=== PATIENT | male | born 2000 | race Hispanic/Latino ===

== ENCOUNTER 2020-08-19 01:21 | Emergency (ER) | payer OTHER | END 2020-08-19 03:15 | disposition home or self-care (01) | LOC: ERS 01:21 | DX: R44.3 Hallucinations, unspecified (principal) | CPT/HCPCS: 99281 ==

== ENCOUNTER 2023-10-29 09:22 | Outpatient (CLI) | payer BC | END 2023-10-29 09:23 | disposition home or self-care (01) | LOC: BICULT 09:22 | PROVIDERS: ATTEND Nurse Practitioner Family | DX: R74.01 Elevation of levels of liver transaminase levels (principal) | CPT/HCPCS: 76705 ==